=== PATIENT | female | born 2000 | race Caucasian/White ===

== ENCOUNTER 2023-03-19 16:33 | Emergency (ER) | payer OTHER, SELFPAY ==
--- NOTE | 2023-03-19 16:34 | ED.WOUNDLAC ---
HPI - Wound/Laceration General Chief Complaint: Wound/Laceration Stated Complaint: L FOOT LACERATION Time Seen by Provider: 03/19/23 16:34 Source: patient and RN notes reviewed History of Present Illness HPI narrative: Patient is a 22-year-old female who presents to the Urgent Care with complaints of a laceration to the top of the left foot. Patient states that just prior to arrival she was cleaning out her car and scraped the top of her foot on a radio. Patient is up-to-date on vaccinations. No other acute complaints. No acute distress noted. Patient aware of the plan of care. Some parts of this dictation were generated by voice recognition software and may contain typographical and/or grammatical inaccuracies. Related Data Home Medications Medication Instructions Recorded Confirmed sertraline 100 mg tablet 100 mg PO DAILY 03/19/23 03/19/23 sumatriptan succinate 50 mg tablet 50 mg PO ONCE 03/19/23 03/19/23 Allergies Allergy/AdvReac Type Severity Reaction Status Date / Time germ ex Allergy Hives Uncoded 03/19/23 16:40 Review of Systems Review of Systems: CONSTITUTIONAL: Denies fever, chills, or sweats. EYES: Denies visual changes, redness, or discharge. ENT: Denies rhinorrhea, congestion, sore throat, or otalgia. CARDIOVASCULAR: Denies chest pain, palpitations, or edema. RESPIRATORY: Denies cough or dyspnea. GASTROINTESTINAL: Denies abdominal pain, nausea, vomiting, or diarrhea. GENITOURINARY: Denies dysuria or hematuria. SKIN: Reports of a laceration to the top of the left foot MUSCULOSKELETAL: Denies back pain, joint pain, or myalgia. NEUROLOGIC: Denies headache, numbness, or weakness. All other systems reviewed are negative, except as documented in HPI. PMFSH Comments At the time of my signature, I reviewed and agree with the nursing past medical, surgical, social, and family history. There is no relevant family history pertinent to the patient complaint. Exam Narrative: GENERAL: This is a well-nourished, well-developed patient, in no apparent distress. HEAD: normocephalic, atraumatic. EYES: PERRL. Sclera clear/white. Vision is grossly intact. EARS: External ears normal THROAT: Mucous membranes moist NECK: Neck supple SKIN: 3 cm linear laceration to the dorsal aspect of the left foot just proximal of the 3rd and 4th digit. Warm, intact with no suspicious lesions or rash, good texture and turgor. NEURO: awake, alert, and oriented to person, place and time. There were no obvious focal neurologic abnormalities. EXTREMITIES: No clubbing, cyanosis, or edema. Positive strong pedal pulse with capillary refill less than 2 seconds Course Course Level of Care: Express Care Visit Vital Signs Vital signs: Vital Signs Temperature 97.6 F 03/19/23 16:41 Pulse Rate 69 03/19/23 16:41 Respiratory Rate 16 03/19/23 16:41 Blood Pressure 122/91 H 03/19/23 16:41 Pulse Oximetry 99 03/19/23 16:41 Temperature 97.6 F 03/19/23 16:41 Pulse Rate 69 03/19/23 16:41 Respiratory Rate 16 03/19/23 16:41 Blood Pressure 122/91 H 03/19/23 16:41 Pulse Oximetry 99 03/19/23 16:41 Reviewed- Patient is informed that they may have pre-hypertension or hypertension based on a blood pressure reading in the department. I recommend the patient call the primary care provider listed on their discharge instructions or a physician of their choice this week to arrange follow-up for further evaluation of possible pre-hypertension or hypertension. Procedures Laceration Laceration 1: Site: lower extremity (Foot) Side (If applicable): left Size (cm): 3 Description: linear Depth: simple, single layer Local Anesthetic: lidocaine 1% Amount of anesthesia used (mL): 1 Pre-repair: irrigated and irrigated extensively ====== Skin Level ====== Skin layer closed with: steri strips and other (Ethilon) Size (cm): 5-0 Number of sutures: 4
[2023-03-19 16:41] VITALS: BP 122/91; PULSE 69; RESP 16; TEMP 36.4; O2SAT 99
== END 2023-03-19 17:34 | disposition home or self-care (01) ==
PROVIDERS: Emergency Provider Nurse Practitioner Family
DX: S91.312A Laceration without foreign body, left foot, initial encounter (principal); W45.8XXA Other foreign body or object entering through skin, initial encounter; F41.9 Anxiety disorder, unspecified; F32.A Depression, unspecified
CPT/HCPCS: 12002; 99212; G0463